=== PATIENT | male | born 1965 | race Caucasian/White ===

== ENCOUNTER 2022-04-13 22:45 | Inpatient (IN) | payer BC ==
[~2022-04-13] VITALS: Ht 180.3 cm; Wt 114.3 kg
[2022-04-13 23:05] VITALS: BP 150/80
--- NOTE | 2022-04-13 23:08 | NUR ---
TO BED AMBULATORY
--- NOTE | 2022-04-13 23:20 | NUR ---
pt bib self c/o right facial droop, right sided numbness. pt AAOx3- unable to recall year at the moment. last known well at 22:15 when pt had sudden onset of headache and right sided numbness and weakness. pt had difficulty walking right sided limp. pt GCS 15. Safety measures are in place and will continue to monitor patient. pmh: epilepsy, covid, Dialysis, DM NKA
--- NOTE | 2022-04-13 23:26 | NUR ---
ER MD AT BEDSIDE FOR EXAMINATION
--- NOTE | 2022-04-13 23:30 | NUR ---
CODE BRAIN CALLED BY DR. HUIZAR
[2022-04-13 23:41] LABS: BASOPHILS # (AUTO) 0.1 K/uL (0.00-0.22); BASOPHILS % (AUTO) 0.9 % (0.0-2.0); EOSINOPHILS # (AUTO) 0.3 K/uL (0-0.4); HEMATOCRIT 41.2 % (36-52); HEMOGLOBIN 14.5 g/dL (12.0-18.0); LYMPHOCYTES # (AUTO) 2.7 K/uL (2.0-11.5); LYMPHOCYTES % (AUTO) 31.5 % (20.5-51.1); MEAN CORPUSCULAR HEMOGLOBIN 33 pg (27-31); MEAN CORPUSCULAR HGB CONC 35 g/dL (33-37); MEAN CORPUSCULAR VOLUME 92.7 fL (80-94); MONOCYTES # (AUTO) 0.7 K/uL (0.8-1.0); MONOCYTES % (AUTO) 7.7 % (1.7-9.3); NEUTROPHILS # (AUTO) 4.8 K/uL (1.8-7.7); NEUTROPHILS % (AUTO) 56.9 % (42.2-75.2); PLATELET COUNT (AUTO) 185 K/uL (140-450); RED BLOOD CELL COUNT(AUTO) 4.45 MIL/uL (4.20-6.10); RED CELL DISTRIBUTION WIDTH 15.3 % (11.6-13.7); WHITE BLOOD COUNT (AUTO) 8.5 K/uL (4.8-10.8)
[2022-04-13] MEDS ORDERED: ONDANSETRON 4 MG/2 ML VIAL ONE (23:53)
--- NOTE | 2022-04-13 23:59 | NUR ---
DR. HUIZAR REQUESTING TELENEURO CONSULT.
[2022-04-14] VITALS (11 sets, daily range): BP systolic 105–144; BP diastolic 67–88
[2022-04-14 00:02] LABS: PROTHROMBIN TIME 10.1 secs (10.8-13.4)
[2022-04-14 00:05] LABS: ALBUMIN 3.8 g/dL (3.4-5.0); ANION GAP 14.1 (8-16); CARBON DIOXIDE 25.5 mmol/L (21-32); CHLORIDE 100 mmol/L (98-107); CREATININE 1.4 mg/dL (0.6-1.3); GFR ARICAN-AMERICAN 67 mL/min (>90); GLUCOSE 220 mg/dL (74-106); POTASSIUM 3.6 mmol/L (3.5-5.1); SODIUM SERUM 136 mmol/L (136-145); TOTAL BILIRUBIN 0.3 mg/dL (0.0-1.0); UREA NITROGEN, BLOOD 24 mg/dL (7-18)
--- NOTE | 2022-04-14 00:10 | NUR ---
pt back from CT. Placed on the engineer booster and exhauster and safety measures are in place. pt currently AAOx3- some confusion at this time.
--- NOTE | 2022-04-14 00:16 | NUR ---
TELE NEURO AT BEDSIDE, PT SPEAKING WITH NEURO
--- NOTE | 2022-04-14 00:25 | NUR ---
TELE NEURO AND ER MD AT BEDSIDE EXAMINING PT TOGETHER
[2022-04-14 00:44] LABS: ASPARTATE AMINOTRANSFERASE 16 U/L (15-37)
[2022-04-14] MEDS ORDERED: ALTEPLASE 100 MG VIAL IV ONE (00:45)
[2022-04-14] MEDS: ZOLPIDEM 5 MG TAB PO PRN (00:46)
--- NOTE | 2022-04-14 01:00 | NUR ---
Pt placed jovi and daughter on facetime. family reporting pt medication per neuro doctor. noted that pt is not taking any blood thinners out of the 7 medications pt is on. Unable to chart medications taken at home at this time due to emergent intervention needed to be done prior to writing out medication list. ER MD made aware.
[2022-04-14] MEDS ORDERED: ACETAMINOPHEN 325 MG TAB PO ONE (01:40)
[2022-04-14] MEDS ORDERED: ONDANSETRON 4 MG/2 ML VIAL IVP ONE (01:40)
--- NOTE | 2022-04-14 02:05 | NUR ---
pt TPA ended at 0202. PT currently AAOx4- originally AAOx3 has improved s/p TPA, GCS 15. Pt still complains of confusion, has delayed answers, right leg goes against gravity is not able to lift high and drops to the bed within seconds, pt lang interpreter strength decreased on the right side, has decreased sensory on the right side. pt attached to the industrial gas servicer supervisor, safety measures applied, and will continue to monitor patient.
--- NOTE | 2022-04-14 02:07 | NUR ---
CALLED PATIENT (URIEL) ABOUT PATIENT UPDATES.
--- NOTE | 2022-04-14 02:15 | NUR ---
Pt AAOx4 & GCS 15. Pt still complains of confusion, has delayed answers, right leg goes against gravity is not able to lift high and drops to the bed within seconds, pt telecom network manager strength decreased on the right side, has decreased sensory on the right side. pt attached to the unit secy, safety measures applied, and will continue to monitor patient.
--- NOTE | 2022-04-14 02:30 | NUR ---
Pt currently AAOx4- improved mentation, GCS 15. Pt able to answer all questions provided but has delay in answers, right leg goes against gravity unable to lift and immediately drops to the bed within seconds, pt extension course coordinator strength decreased on the right side, has decreased sensory on the right side. pt attached to the director of cardiac cath lab, safety measures applied, and will continue to monitor patient.
--- NOTE | 2022-04-14 02:32 | NUR ---
Patient will be admitted to care of Devora BARRIENTOS. Admited to telemetry. Will go to room 110B. Belongings list completed. Report to Aristeo DIAZ.
--- NOTE | 2022-04-14 03:10 | NUR ---
provided report to insulation cupola charger Juliet about pt condition and information.
--- NOTE | 2022-04-14 07:31 | NUR ---
PATIENT ENDORSED TO DAY SHIFT (EMILY MCGREGOR)
[2022-04-14] MEDS ORDERED: METF-346 PO (08:29)
[2022-04-14] MEDS ORDERED: VITB12 PO (08:29)
[2022-04-14] MEDS ORDERED: ATOR40TA40 PO (08:29)
[2022-04-14] MEDS ORDERED: CHOL1POW67 (08:29)
[2022-04-14] MEDS ORDERED: AMLO5TAB PO (08:29)
[2022-04-14] MEDS ORDERED: FURO-570 PO (08:29)
[2022-04-14] MEDS ORDERED: PHEN300C5 PO (08:29)
[2022-04-14] MEDS ORDERED: EMPA10TA PO (08:29)
[2022-04-14 08:44] LABS: BASOPHILS # (AUTO) 0.1 K/uL (0.00-0.22); BASOPHILS % (AUTO) 0.8 % (0.0-2.0); EOSINOPHILS # (AUTO) 0.2 K/uL (0-0.4); EOSINOPHILS % (AUTO) 2.9 % (0.0-4.0); HEMATOCRIT 41.2 % (36-52); HEMOGLOBIN 14.1 g/dL (12.0-18.0); LYMPHOCYTES % (AUTO) 29.9 % (20.5-51.1); MEAN CORPUSCULAR HEMOGLOBIN 32 pg (27-31); MEAN CORPUSCULAR HGB CONC 34 g/dL (33-37); MEAN CORPUSCULAR VOLUME 93.5 fL (80-94); MONOCYTES # (AUTO) 0.5 K/uL (0.8-1.0); MONOCYTES % (AUTO) 6.9 % (1.7-9.3); NEUTROPHILS % (AUTO) 59.5 % (42.2-75.2); PLATELET COUNT (AUTO) 172 K/uL (140-450); RED BLOOD CELL COUNT(AUTO) 4.41 MIL/uL (4.20-6.10); RED CELL DISTRIBUTION WIDTH 15.1 % (11.6-13.7); WHITE BLOOD COUNT (AUTO) 6.7 K/uL (4.8-10.8)
[2022-04-14] MEDS ORDERED: guaiFENesin DM 200/20 MG-10 ML 10 ML UDC PO PRN (08:55)
[2022-04-14] MEDS ORDERED: ACETAMINOPHEN 325 MG TAB PO PRN (08:55)
[2022-04-14] MEDS ORDERED: POTASSIUM CHLORIDE 10 MEQ TABER PO PRN (08:55)
[2022-04-14] MEDS ORDERED: DOCUSATE SODIUM 100 MG GELCAP PO PRN (08:55)
[2022-04-14] MEDS ORDERED: HYDROcodone/APAP 7.5/325 MG 1 TAB PO PRN (08:55)
[2022-04-14] MEDS ORDERED: ONDANSETRON 4 MG/2 ML VIAL IM/IVP PRN (08:55)
[2022-04-14 10:12] LABS: PROTHROMBIN TIME 11.2 secs (10.8-13.4)
[2022-04-14 10:17] LABS: AMYLASE 30 U/L (25-115); CHOL/HDL RATIO 4.4 (1-4.5); FREE T4 (FREE THYROXINE) 0.89 ng/dL (0.76-1.46); HDL CHOLESTEROL 44 mg/dL (40-60); LIPASE 89 U/L (73-393); MAGNESIUM 1.9 mg/dL (1.8-2.4); PHOSPHORUS 3.8 mg/dL (2.5-4.9); THYROID STIMULATING HORMONE 2.68 uIU/mL (0.34-3.74)
[2022-04-14 10:20] LABS: TRIGLYCERIDES 1021 mg/dL (30-150)
--- NOTE | 2022-04-14 11:21 | NUR ---
1030AM: DR. MORALES CAME & TALKED TO PATIENT, PLAN IS TO KEEP THE PATIENT IN THE UNIT. DO BEDSIDE SWALLOW EVALUATION, IF PASSED TO GIVE CCHO DIET. WILL REPEAT CT SCAN BEFORE DISCHARGE. PT. HAVE AN APPOINTMENT WITH NEUROLOGIST. Addendum: 04/14/22 at 1159 by Agency 06 RN RN NEURO APPOINTMENT ON 04/17/2022
--- NOTE | 2022-04-14 12:06 | NUR ---
BEDSIDE SWALLOW TEST PASSED PATIENT ALERT, ORIENTED. STARTED SWALLOW TEST EVALUATION WITH ICE CHIPS. NO COUGHING. PATIENT SAYS THERE IS NUMBNESS ON THE RIGHT SIDE OF TONGUE, BUT NO SWALLOWING PROBLEM. TRIED GIVING WITH SUGAR-FREE JELL-O. FINISHED 1 SMALL SERVING CUP WITHOUT A PROBLEM. JELL-O GIVEN IN SMALL BITES ENOUGH TO INTRODUCE ON THE LEFT SIDE OF THE MOUTH. PT.WANTS TO EAT A REGULAR CONSISTENCY OF CONTROLLED-CARBOHYDRATE DIET ORDERED BY DR. MORALES ON ROUNDS.
[2022-04-14] MEDS: BLOOD GLUCOSE MONITORING 1 DEV DEV FS SCH ×2 (16:48→21:00)
[2022-04-14] MEDS: INSULIN LISPRO SLIDING SCALE 100 UNITS/ML VIAL SUBQ PRN ×2 (17:46→21:09)
--- NOTE | 2022-04-14 18:36 | NUR ---
O2 NASAL CANNULA 2LPM SpO2 DROPS TO 91% WHEN ASLEEP. GIVEN INCENTIVE SPIROMETER. ABLE TO INHALE 1500 MLS. OF VOLUME OF AIR. ADVISED TO DO 10 TIMES EVERY HOUR. AWAKE, SpO2 AT 94%, PLACED ON O2 2LPM/NASAL CANNULA. PENDING URINE ANALYSIS.
--- NOTE | 2022-04-14 19:20 | NUR ---
RECEIVED ENDORSEMENT FROM DAY SHIFT (EMILY MCGREGOR)
[2022-04-14] MEDS ORDERED: PHENYTOIN SODIUM PO SCH (21:00)
[2022-04-14] MEDS: PHENYTOIN 100 MG CAPER PO SCH (21:07)
[2022-04-15] VITALS (10 sets, daily range): BP systolic 127–154; BP diastolic 68–87
--- NOTE | 2022-04-15 00:45 | NUR ---
PATIENT REQUESTING TREVONIEN TO HELP WITH SLEEP WILL PROVIDE MEDICATION PER MD ORDERS
[2022-04-15 01:36] LABS: BARBITURATE, URINE POSITIVE ng/ml (NEG <=200); BENZODIAZEPINE, URINE NEGATIVE ng/mL (NEG <=200); CANNABINOID, URINE NEGATIVE ng/mL (NEG <=50); COCAINE, URINE NEGATIVE ng/mL (NEG <=300); OPIATE, URINE NEGATIVE ng/mL (NEG <=2000); PHENCYCLIDINE SCREEN,URINE NEGATIVE ng/mL (NEG <=25)
[2022-04-15 06:27] LABS: ANION GAP 13.3 (8-16); CARBON DIOXIDE 25.7 mmol/L (21-32); CREATININE 1.2 mg/dL (0.6-1.3)
[2022-04-15 06:29] LABS: EOSINOPHILS # (AUTO) 0.2 K/uL (0-0.4); EOSINOPHILS % (AUTO) 3.1 % (0.0-4.0); HEMATOCRIT 40.2 % (36-52); HEMOGLOBIN 13.8 g/dL (12.0-18.0); LYMPHOCYTES # (AUTO) 2.4 K/uL (2.0-11.5); MEAN CORPUSCULAR HEMOGLOBIN 32 pg (27-31); MEAN CORPUSCULAR HGB CONC 34 g/dL (33-37); MEAN CORPUSCULAR VOLUME 93.9 fL (80-94); MONOCYTES # (AUTO) 0.4 K/uL (0.8-1.0); MONOCYTES % (AUTO) 6.2 % (1.7-9.3); NEUTROPHILS # (AUTO) 3.4 K/uL (1.8-7.7); NEUTROPHILS % (AUTO) 53.7 % (42.2-75.2); PLATELET COUNT (AUTO) 174 K/uL (140-450); RED BLOOD CELL COUNT(AUTO) 4.28 MIL/uL (4.20-6.10); WHITE BLOOD COUNT (AUTO) 6.4 K/uL (4.8-10.8)
[2022-04-15 06:32] LABS: ANION GAP 15.4 (8-16); CREATININE 1.3 mg/dL (0.6-1.3); POTASSIUM 4.4 mmol/L (3.5-5.1)
--- NOTE | 2022-04-15 07:30 | NUR ---
CARE OF PATIENT ENDORSED TO DAY SHIFT (EMILY CROSS)
--- NOTE | 2022-04-15 07:32 | NUR ---
RECEIVED REPORT FROM EMILY WILLETT. TRANSFER OF CARE OF PT AT THIS TIME. 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 NO SIGNS OF RR DISTRESS NOTED, PT DENIES PAIN. HOB ELEVATED, SELF-TURNS, SKIN IS INTACT, IV TO LEFT AC 20G, FLUSHES EASILY, CDI, SL. PT C/O RIGHT EYE DRYNESS REQUESTING LIGHT TO BE DIM, WILL RELAY TO DR. MORALES FOR EYEDROPS.
[2022-04-15 08:07] LABS: T4 (THYROXINE) 7.4 ug/dL (4.5-12.0)
[2022-04-15] MEDS: BLOOD GLUCOSE MONITORING 1 DEV DEV FS SCH ×4 (08:21→20:49)
--- NOTE | 2022-04-15 08:22 | NUR ---
DR. MORALES AT PT BEDSIDE FOR FURTHER EVALUATION. PENDING NEURO CONSULT WITH DR. MCMAHON AT BEDSIDE, PENDING PT PRIOR TO DISCHARGE WITH POSSIBLE CT IF ORDERED. PT STATES CAN TAKE HIM HOME, NO QUESTIONS AT THIS TIME UNDERSTANDS THE PLAN OF CARE.
[2022-04-15] MEDS: amLODIPine 5 MG TAB PO SCH (08:33)
[2022-04-15] MEDS: FUROSEMIDE 40 MG TAB PO SCH (08:33)
[2022-04-15] MEDS: PHENYTOIN 100 MG CAPER PO SCH ×2 (08:35→20:24)
[2022-04-15] MEDS: INSULIN LISPRO SLIDING SCALE 100 UNITS/ML VIAL SUBQ PRN ×4 (08:44→20:33)
--- NOTE | 2022-04-15 10:19 | NUR ---
PATIENT HAS BEEN SCREENED AND CATEGORIZED MODERATE NUTRITION RISK. PATIENT WILL BE SEEN WITHIN 3-5 DAYS OF ADMISSION. 04/17/22-04/19/[address] BY [address]
[2022-04-15] MEDS ORDERED: DEXT15DR6 OP (10:53)
[2022-04-15] MEDS ORDERED: ASPI-1822 PO (10:53)
--- NOTE | 2022-04-15 11:12 | NUR ---
PT AT PT BEDSIDE FOR EVALUATION AT THIS TIME.
[2022-04-15] MEDS: CARBOXYMETHYLCELLULOSE 1% OP SCH ×2 (12:55→17:00)
[2022-04-15] MEDS ORDERED: POLYVINYL ALCOHOL 1.4% OP 15 ML SOL OP SCH (13:00)
--- NOTE | 2022-04-15 13:08 | NUR ---
P.T. NOTES P.T. EVAL COMPLETED; REFER TO EVCHIQUI FOR DETAILS. Addendum: 04/15/22 at 1309 by Ama Alonso PT PATIENT MAY BENEFIT W/ AMBULATION W/ SPC/FWW AD ARLENE W/ NURSE SUPERVISION.
--- NOTE | 2022-04-15 13:51 | NUR ---
DC PLANNING: THE PATIENT ADMITTED WITH S/S OF CVA, FROM HOME, RIGHT SIDED FACIAL DROOP AND PARAESTHESIAS NOTED TO RIGHT SIDE OF TONGUE. CODE STROKE CALLED, GIVEN ALTEPLASE IN ED. PATIENT ADMITTED TO ICU, CLEARED TODAY FOR DC HOME. ORDER RECEIVED FOR HOME HEALTH P.T., BETH CALLED PATIENTS INSURANCE (PHONE [phone], FAX [phone]), ADVISED BY PROVIDER ASSISTANCE LANDRY THAT THEIR SYSTEM IS DOWN AND THERE IS NO ESTIMATED TIME WHEN IT WILL COME UP TO ASSIST WITH PROCESSING A HOME HEALTH REQUEST. CM THEN ATTEMPTED TO CALL THE PATIENTS , CHANG LEFT ASKING FOR A RETURN CALL TO DISCUSS HOME HEALTH AND DC NEEDS. CM WILL FOLLOW. Addendum: 04/16/22 at 1132 by Kourtney Howard RN DC PLANNING: PATIENT HAS AN ORDER FOR MRI OF THE BRAIN WITH OUT CONTRAST CALLED [facility] MRI DEPT SPOKE WITH JENNY STATED THE RELIGIOUS ACTIVITIES DIRECTOR IS IN THE PROCEDURE, WILL CALL BACK WHEN AVAILABLE. NOTIFIED MARIAH THE RN TO FILL OUT THE MRI QUESTIONER. CM TO FOLLOW
[2022-04-15] MEDS: LORazepam 2 MG/ML VIAL IVP PRN (15:19)
--- NOTE | 2022-04-15 17:52 | NUR ---
GAVE REPORT TO EMILY LEMUS. TRANSFER OF CARE AT THIS TIME.
--- NOTE | 2022-04-15 18:07 | NUR ---
PT ARRIVED ON UNIT. PT AND FAMILY MEMBER REMARKED THAT ROOM WAS "A LITTLE WARM." PORTABLE FAN BROUGHT IN FOR FAMILY TO ADJUST AD ARLENE.
[2022-04-15] MEDS: ATORVASTATIN 80 MG TAB PO SCH (19:20)
--- NOTE | 2022-04-15 19:45 | NUR ---
RECEIVED BEDSIDE REPORT EARLIER FROM THE DAY NURSE FOR CONTINUITY OF CARE. RECEIVED PATIENT A/A/OX3, SITTING UP ON BED WATCHING TV. PT AT THE BEDSIDE. PATIENT DENIES CHEST PAIN, SOB, DIZZINESS AND PALPITATIONS. PT NOT ON ANY DISTRESS AND NO COMPLAIN OF ANY PAIN AT THIS TIME. NOTED RIGHT FACIAL DROOP, SPEECH CLEAR, PATIENT ABLE TO MOVE ALL EXTREMITIES. VSS, AFEBRILE, SATING 95% ON RA. SR ON TELE MONITOR, HR-84. FALL PRECAUTION IMPLEMENTED. INSTRUCTED TO CALL FOR ASSISTANCE AT ALL TIMES WHEN GETTING OUT OF BED. PATIENT VERBALIZED UNDERSTANDING WITH THE POC. CALL LIGHT WITHIN REACH. WILL CONTINUE MONITORING.
--- NOTE | 2022-04-15 22:00 | NUR ---
ADMINISTERED ALL SCHEDULED MEDICATIONS ORDERED.NO ADVERSE DRUG REACTION NOTED AND NO COMPLAIN FROM THE PATIENT. WILL CONTINUE TO MONITOR THE PATIENT.
[2022-04-15] MEDS: ZOLPIDEM 5 MG TAB PO PRN (23:45)
[2022-04-16] VITALS: BP 121/72
--- NOTE | 2022-04-16 | NUR ---
PATIENT VITALS SIGNS STABLE, AFEBRILE, SATING 98% ON RA. NOT IN ANY DISTRESS AND NO COMPLAIN AT THIS TIME. SR ON TELE MONITOR, HR-79. CALL LIGHT WITHIN REACH. WILL CONTINUE MONITORING.
--- NOTE | 2022-04-16 02:00 | NUR ---
MADE ROUNDS. PATIENT ASLEEP AT THIS TIME. VISIBLE CHEST RISE AND FALL NOTED. PT NOT ON ANY DISTRESS. CALL LIGHT WITHIN REACH. WILL CONTINUE OBSERVATION.
[2022-04-16 04:00] VITALS: BP 119/84
--- NOTE | 2022-04-16 04:00 | NUR ---
PATIENT VITAL SIGNS STABLE, AFEBRILE, SATING 96% ON ROOM AIR. SR ON HOT BILLET SHEAR OPERATOR, HR-75. NOT ON ANY DISTRESS AND NO COMPLAIN AT THIS TIME. CALL LIGHT WITHIN REACH. WILL CONTINUE MONITORING AND POC.
[2022-04-16] MEDS: LORazepam 2 MG/ML VIAL IVP PRN (04:35)
--- NOTE | 2022-04-16 06:00 | NUR ---
NO ACUTE EVENT THROUGHOUT THE NIGHT. PATIENT STABLE AND NOT ON ANY DISTRESS. PATIENT HAS NO COMPLAIN AT THIS TIME. WILL ENDORSE THE PATIENT TO THE ONCOMING NURSE FOR CONTINUITY OF CARE.
[2022-04-16] MEDS: BLOOD GLUCOSE MONITORING 1 DEV DEV FS SCH ×4 (06:44→20:55)
[2022-04-16] MEDS: INSULIN LISPRO SLIDING SCALE 100 UNITS/ML VIAL SUBQ PRN ×3 (06:46→20:57)
[2022-04-16 07:03] LABS: BASOPHILS % (AUTO) 0.6 % (0.0-2.0); EOSINOPHILS # (AUTO) 0.2 K/uL (0-0.4); EOSINOPHILS % (AUTO) 3.5 % (0.0-4.0); HEMATOCRIT 40.1 % (36-52); HEMOGLOBIN 13.7 g/dL (12.0-18.0); LYMPHOCYTES # (AUTO) 2.4 K/uL (2.0-11.5); LYMPHOCYTES % (AUTO) 35.6 % (20.5-51.1); MEAN CORPUSCULAR HEMOGLOBIN 32 pg (27-31); MEAN CORPUSCULAR HGB CONC 34 g/dL (33-37); MEAN CORPUSCULAR VOLUME 93.3 fL (80-94); MONOCYTES # (AUTO) 0.5 K/uL (0.8-1.0); MONOCYTES % (AUTO) 7.9 % (1.7-9.3); NEUTROPHILS # (AUTO) 3.6 K/uL (1.8-7.7); NEUTROPHILS % (AUTO) 52.4 % (42.2-75.2); PLATELET COUNT (AUTO) 170 K/uL (140-450); RED CELL DISTRIBUTION WIDTH 14.8 % (11.6-13.7); WHITE BLOOD COUNT (AUTO) 6.8 K/uL (4.8-10.8)
--- NOTE | 2022-04-16 07:14 | NUR ---
ENDORSED PATIENT TO THE ONCOMING NURSE FOR CONTINUITY OF CARE. PATIENT STABLE. SIGNING OFF.
[2022-04-16 07:32] LABS: ANION GAP 14.3 (8-16); CREATININE 1.2 mg/dL (0.6-1.3); POTASSIUM 4.3 mmol/L (3.5-5.1)
[2022-04-16 08:00] VITALS: BP 128/91
[2022-04-16] MEDS: PHENYTOIN 100 MG CAPER PO SCH ×2 (08:19→20:55)
[2022-04-16] MEDS: FUROSEMIDE 40 MG TAB PO SCH (08:20)
[2022-04-16] MEDS: ASPIRIN 325 MG TABEC PO SCH (08:20)
[2022-04-16] MEDS: amLODIPine 5 MG TAB PO SCH (08:21)
[2022-04-16] MEDS: CARBOXYMETHYLCELLULOSE 1% OP SCH ×3 (09:00→16:35)
--- NOTE | 2022-04-16 12:22 | NUR ---
CONSENT FOR MRI OF BRAIN W/O CM GIVEN BY PT. PT ALSO FILLED OUT MRI QUESTIONNAIRE. PT ALSO SEEN BY CM. PT DID REPORT HAVING DENTAL FILLINGS IN THE PAST AND THAT SINCE THEN HE HAS HAD MRIs W/O ANY PROBLEM. P/U TIME IS 1330 TODAY.
--- NOTE | 2022-04-16 12:30 | NUR ---
DISCHARGE PLANNING PATIENT IS A 56 YEAR OLD MALE ADMITTED TO [facility]/ED ON 04/14/2022. DUE TO COMPLAINS AND SYMPTOMS OF STROKE, PATIENT NOTICE RIGHT- SIDED FACIAL DROOP AND PARESTHESIAS OF THE RIGHT SIDE TONGUE. PATIENT HAS HISTORY OF COVID-19, DIABETES, HYPERTENSION, SEIZURES ON DILANTIN. SW MEET WITH PATIENT AT BEDSIDE TO DISCUSS AND GATHER PATIENT'S COLLATERAL INFORMATION. PATIENT WAS AWAKE AND ALERT ABLE TO PROVIDE ALL HIS INFORMATION. PATIENT REPORTED LIVING AT HOME WITH HIS URIEL WOO WHO IS HIS EMERGENCY CONTACT. PATIENT STATED THAT HE DO NOT HAVE A.D. AND WAS NOT INTERESTED ON GETTING INF. PACKET PROVIDED BY [facility]. PATIENT STATED THAT HE HAS GOOD FAMILY SUPPORT; FROM HIS AND 3 ADULT DAUGHTERS THAT LIVE WITH THEM. PER PATIENT THEY ALL ARE ABLE TO PROVIDE HIM WITH ASSISTANCE WHEN HE NEEDS IT. PATIENT STATED THAT HIS PCP IS DR. IVAN LASSITER AT [facility] IN [facility]. . PATIENT REPORTED THAT HIS LAST VISIT WITH PCP WAS LAST WEEK 03/27/22 AND 04/08/22 FOR HIS LABS. SW DISCUSSED WITH PATIENT THE IMPORTANCE OF FOLLOWING UP WITH HIS PRIMARY DOCTOR AFTER HE IS DISCHARGED FROM [facility] WITH IN 5-7 DAYS. SW INFORMED PATIENT THAT A FOLLOW UP APPOINTMENT WILL BE SCHEDULED FOR HIM BY THESE HUMAN RESOURCES COMPENSATION ANALYST AFTER HE IS DISCHARGE. PATIENT AGREED TO HAVE SW MAKE HIS FOLLOW UP APPOINTMENT AND AGREED TO ATTEND. PATIENT ALSO REPORTED NOT HAVING ANY ISSUES GETTING OR TAKING HIS MEDICATIONS FROM HIS LOCAL [facility] AT [facility]. PATIENT REPORTED THAT WHEN HE IS READY FOR DISCHARGE HIS URIEL WOO OR ONE OF HIS GRANDDAUGHTERS WILL BE PICKING HIM UP FROM [facility] AND TAKE HIM HOME. SW WILL FOLLOW UP NEEDED
--- NOTE | 2022-04-16 13:23 | NUR ---
PT LEFT FOR MRI OF BRAIN VIA STRETCHER AND ACCOMPANIED BY TWO AMBULANCE TRANSPORTERS. DESTINATION: [facility], [place], [place]. PAPERWORK PROVIDED. CM AWARE. TELEMETRY BOX REMOVED AND PLACED ON BEDSIDE TABLE.
--- NOTE | 2022-04-16 15:32 | NUR ---
PT ARRIVED BACK TO UNIT AT 1520 VIA STRETCHER. PT IN STABLE CONDITION.
[2022-04-16] MEDS: ATORVASTATIN 80 MG TAB PO SCH (16:35)
--- NOTE | 2022-04-16 18:29 | NUR ---
PT EXPLAINED TO THAT CM HAS SUBMITTED REQUESTS FOR HOME HEALTH AND IS AWAITING REPLY.
[2022-04-16 19:44] VITALS: BP 133/75
[2022-04-16 20:00] VITALS: BP 126/78
--- NOTE | 2022-04-16 20:18 | NUR ---
GOT A REPORT FROM DAY EMILY LEMUS THAT THE PT IS DISCHARGE. NO ORDER NOTED EXCEPT FOR THE ONE THAT THE DAY RN PUT IN THE SYSTEM PAGED DR MORALES AND DR GLASS TO CLARIFY IF THE PT IS GOING TO BE DISCHARGE TONIGHT EVEN WITHOUT THE MRI RESULT. SPOKE WITH THE PATIENT AND HIS , BOTH MADE AWARE THAT I'M STILL CLARIFYING WITH DR MORALES IF HE IS GOING TO BE DISCHARGE TONIGHT. STILL WAITING FOR MD TO CALL BACK.
--- NOTE | 2022-04-16 20:30 | NUR ---
DR GLASS MESSAGED BACK TO KEEP THE PATIENT ONE MORE NIGHT. RELAY THE MESSAGE TO THE PATIENT AND HIS . PATIENT IS UPSET AND STATED THAT THE DAY RN MARIAH ALREADY GAVE HIM THE DISCHARGE INSTRUCTIONS. EXPLAINED TO THE PATIENT THAT MD WANTED TO KEEP HIM ONE MORE NIGHT SO THE ATTENDING MD IN THE MORNING CAN GIVE THE PATIENT THE FORMAL DISCHARGE. PATIENT CALMED DOWN AND VERBALIZED UNDERSTANDING. DR BA ALSO CALLED EARLIER AND ASKED IF THE PATIENT CAME BACK FROM [facility] WITH THE RESULT OF HIS MRI. DR BA MADE AWARE THAT PT CAME BACK WITHOUT THE RESULT OF THE MRI. NO FURTHER ORDER GIVEN.
[2022-04-16] MEDS: ZOLPIDEM 5 MG TAB PO PRN (20:55)
--- NOTE | 2022-04-16 22:00 | NUR ---
ADMINISTERED ALL SCHEDULED MEDICATIONS EARLIER ORDERED.NO ADVERSE DRUG REACTION NOTED AND NO COMPLAIN FROM THE PATIENT. WILL CONTINUE TO MONITOR THE PATIENT.
[2022-04-17] VITALS: BP 123/69
--- NOTE | 2022-04-17 | NUR ---
PATIENT VITALS SIGNS STABLE, AFEBRILE, SATING 94% ON RA. NOT IN ANY DISTRESS AND NO COMPLAIN AT THIS TIME. SR ON TELE MONITOR, HR-86. CALL LIGHT WITHIN REACH. WILL CONTINUE MONITORING.
[2022-04-17] MEDS: LORazepam 2 MG/ML VIAL IVP PRN (01:33)
--- NOTE | 2022-04-17 02:00 | NUR ---
MADE ROUNDS. PATIENT ASLEEP AT THIS TIME. VISIBLE CHEST RISE AND FALL NOTED. PT NOT ON ANY DISTRESS. CALL LIGHT WITHIN REACH. WILL CONTINUE OBSERVATION.
[2022-04-17 04:00] VITALS: BP 121/75
--- NOTE | 2022-04-17 04:00 | NUR ---
PATIENT VITALS SIGNS STABLE, AFEBRILE, SATING 95% ON RA. NOT IN ANY DISTRESS AND NO COMPLAIN AT THIS TIME. SR ON TELE MONITOR, HR-70. CALL LIGHT WITHIN REACH. WILL CONTINUE MONITORING.
[2022-04-17] MEDS: BLOOD GLUCOSE MONITORING 1 DEV DEV FS SCH (06:31)
[2022-04-17] MEDS: INSULIN LISPRO SLIDING SCALE 100 UNITS/ML VIAL SUBQ PRN (06:32)
[2022-04-17 07:12] LABS: BASOPHILS % (AUTO) 0.6 % (0.0-2.0); EOSINOPHILS # (AUTO) 0.2 K/uL (0-0.4); EOSINOPHILS % (AUTO) 3.6 % (0.0-4.0); HEMATOCRIT 40.9 % (36-52); HEMOGLOBIN 14.2 g/dL (12.0-18.0); LYMPHOCYTES # (AUTO) 2.3 K/uL (2.0-11.5); LYMPHOCYTES % (AUTO) 32.6 % (20.5-51.1); MEAN CORPUSCULAR HEMOGLOBIN 32 pg (27-31); MEAN CORPUSCULAR HGB CONC 35 g/dL (33-37); MEAN CORPUSCULAR VOLUME 92.5 fL (80-94); MONOCYTES # (AUTO) 0.5 K/uL (0.8-1.0); MONOCYTES % (AUTO) 6.9 % (1.7-9.3); NEUTROPHILS # (AUTO) 3.9 K/uL (1.8-7.7); NEUTROPHILS % (AUTO) 56.3 % (42.2-75.2); PLATELET COUNT (AUTO) 186 K/uL (140-450); RED BLOOD CELL COUNT(AUTO) 4.42 MIL/uL (4.20-6.10); RED CELL DISTRIBUTION WIDTH 15.5 % (11.6-13.7); WHITE BLOOD COUNT (AUTO) 6.9 K/uL (4.8-10.8)
[2022-04-17 07:18] LABS: CARBON DIOXIDE 26.9 mmol/L (21-32); CREATININE 1.2 mg/dL (0.6-1.3); POTASSIUM 3.9 mmol/L (3.5-5.1)
--- NOTE | 2022-04-17 07:24 | NUR ---
ENDORSED PATIENT TO THE ONCOMING NURSE FOR CONTINUITY OF CARE. PATIENT STABLE. SIGNING OFF.
--- NOTE | 2022-04-17 07:30 | NUR ---
RECEIVED PT FROM NIGHT RN, PT IS ALERT, AWAKE AND ORIENTED, WITH SLIGHT FACIAL DROOPING NOTED, ON ROOM AIR, IV LINE NOTED ON THE LAC G. 20, ON SEIZURE PRECAUTION, SIDE RAILS ARE UP AND CALL LIGHT WITHIN REACH, NO SIG OF DISTRESS NOTED AND WILL CONTINUE TO MONITOR PT.
[2022-04-17 08:00] VITALS: BP 118/71
[2022-04-17] MEDS: ASPIRIN 325 MG TABEC PO SCH (08:27)
[2022-04-17] MEDS: CARBOXYMETHYLCELLULOSE 1% OP SCH (08:28)
[2022-04-17] MEDS: FUROSEMIDE 40 MG TAB PO SCH (08:28)
[2022-04-17] MEDS: amLODIPine 5 MG TAB PO SCH (08:28)
--- NOTE | 2022-04-17 08:28 | NUR ---
PT WAS SERVED BREAKFAST AND WAS GIVEN THE SCHEDULED AM MEDICATIONS NOW, PARAMETERS CHECKED, TOLERATED AND WILL MONITOR PT.
[2022-04-17] MEDS: PHENYTOIN 100 MG CAPER PO SCH (08:29)
[2022-04-17] MEDS ORDERED: PRED20TA5 PO (08:43)
[2022-04-17] MEDS ORDERED: FENOFIBRATE 48 MG TAB PO SCH (09:00)
--- NOTE | 2022-04-17 09:57 | NUR ---
DISCHARGED PT TO HOME ACCOMPANIED BY DAUGHTER, IV LINE REMOVED, DISCHARGE TEACHINGS AND INSTRUCTIONS WERE GIVEN TO PT AND VERBALIZED UNDERSTANDING. PT IS STABLE AT THIS TIME.
== END 2022-04-17 10:00 | disposition home or self-care (01) | DRG 74 ==
LOC: MED 22:45 → EDBD 22:45 → MTU 04-14 02:03 → MIC 04-14 03:34 → MTU 04-15 18:00
PROVIDERS: ADMIT Student in an Organized Health Care Education/Training Program; ATTEND Student in an Organized Health Care Education/Training Program
DX: G90.8 Other disorders of autonomic nervous system (principal); N17.9 Acute kidney failure, unspecified; I12.9 Hypertensive chronic kidney disease with stage 1 through stage 4 chronic kidney disease, or unspecified chronic kidney disease; E11.22 Type 2 diabetes mellitus with diabetic chronic kidney disease; N18.9 Chronic kidney disease, unspecified; G40.909 Epilepsy, unspecified, not intractable, without status epilepticus; E78.1 Pure hyperglyceridemia; Z20.822 Contact with and (suspected) exposure to COVID-19; Z79.84 Long term (current) use of oral hypoglycemic drugs; Z79.899 Other long term (current) drug therapy
CPT/HCPCS: 36415; 70450; 71045; 80048; 80053; 80185; 80305; 82150; 82948; 83036; 83690; 83735; 83880; 84100; 84436; 84439; 84443; 84479; 84484; 85025; 85610; 85730; 87081; 93005; 96361; 96374; 97163-GP; 99285; J1644; J2060; J2405; J2997; Q0092; Q9967